=== PATIENT | female | born 1990 | race American Indian/Alaskan Native ===

== ENCOUNTER 2018-03-13 06:55 | Emergency (ER) | payer SELFPAY ==
[2018-03-13] MEDS ORDERED: Alum Hydrox/Mag Hydrox/Simeth 15 ML, Lidocaine 2% 15 ML PO ONE ×2 (07:24)
--- NOTE | 2018-03-13 07:29 | EDM.PDOC ---
ED HPI GENERAL MEDICAL PROBLEM - General Chief Complaint: General Stated Complaint: STOMACH PAIN Time Seen by Provider: 03/13/18 07:15 Source of Information: Reports: Patient, EMS History Limitations: Reports: No Limitations - History of Present Illness INITIAL COMMENTS - FREE TEXT/NARRATIVE: 27-year-old female who admits to recent heroin use, last used 2 days ago, has epigastric and chest discomfort for the last 12 hours. It's intermittent lasting a few minutes to 10-20 minutes, crampy in nature, and seems to originate in the upper abdomen and into the chest. While having the pain it hurts to take a breath. In route she was given 2 nitroglycerin, the second one "might have helped". EKG was unremarkable. She has not had this type of symptom before, no fevers or chills, she had one emesis this morning. No urinary symptoms. No diarrhea. Onset: Unknown/Unsure Duration: Hour(s): (12) Location: Reports: Chest, Abdomen Severity: Moderate Associated Symptoms: Reports: Chest Pain, Nausea/Vomiting. 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: Psychiatric History: Reports: Addiction - Past Surgical History GI Surgical History: Reports: Appendectomy Female Surgical History: Reports: Section Social & Family History - Tobacco Use Smoking Status *Q: Current Some Day Smoker Years of Tobacco use: 15 Packs/Tins Daily: 0.5 Used Tobacco, but Quit: No Second Hand Smoke Exposure: No - Caffeine Use Caffeine Use: Reports: Coffee, Soda, Tea - Alcohol Use Days Per Week of Alcohol Use: 0 - Recreational Drug Use Recreational Drug Use: Yes Drug Use in Last 12 Months: Yes Recreational Drug Type: Reports: Heroin Recreational Drug Use Frequency: Rarely Recreational Drug Last Use: heroin ED ROS GENERAL - Review of Systems Review Of Systems: See Below Constitutional: Reports: Malaise. Denies: Fever, Chills HEENT: Reports: No Symptoms Respiratory: Reports: Pleuritic Chest Pain. Denies: Shortness of Breath Cardiovascular: Reports: Chest Pain GI/Abdominal: Reports: Abdominal Pain, Nausea, Vomiting. Denies: Constipation, Diarrhea, Hematemesis : Reports: No Symptoms Skin: Reports: No Symptoms Neurological: Denies: Headache ED EXAM, GENERAL - Physical Exam Exam: See Below Exam Limited By: No Limitations General Appearance: Alert, Mild Distress (When I first arrived in the room she was comfortable but pain redeveloped causing her to be in mild distress, apparent discomfort) Eye Exam: Bilateral Eye: Other (No jaundice to the sclera) Neck: Normal Inspection Respiratory/Chest: No Respiratory Distress, Lungs Clear Cardiovascular: Regular Rate, Rhythm. No: Extra Beats GI/Abdominal: Soft, Tender (Reacts with tenderness with mild guarding to palpation across the upper abdomen, especially the epigastric area and right upper quadrant) Course - Vital Signs Last Recorded V/S: Last Vital Signs Temp 96.3 F 03/13/18 07:17 Pulse 67 03/13/18 08:32 Resp 13 03/13/18 07:17 BP 102/63 03/13/18 08:32 Pulse Ox 99 03/13/18 07:17 - Orders/Labs/Meds Labs: Laboratory Tests 03/13/18 03/13/18 Range/Units 07:33 07:33 WBC 10.5 (4.5-11.0) K/uL RBC 4.80 (3.30-5.50) M/uL Hgb 13.0 (12.0-15.0) g/dL Hct 39.2 (36.0-48.0) % MCV 82 (80-98) fL MCH 27 (27-31) pg MCHC 33 (32-36) % Plt Count 232 (150-400) K/uL Neut % (Auto) 78 H (36-66) % Lymph % (Auto) 16 L (24-44) % Mccreary % (Auto) 5 (2-6) % Eos % (Auto) 1 L (2-4) % Baso % (Auto) 0 (0-1) % Sodium 144 (140-148) mmol/L Potassium 3.2 L (3.6-5.2) mmol/L Chloride 106 (100-108) mmol/L Carbon Dioxide 27 (21-32) mmol/L Anion Gap 14.2 H (5.0-14.0) mmol/L BUN 10 (7-18) mg/dL Creatinine 0.7 (0.6-1.0) mg/dL Est Cr Clr Drug Dosing 123.93 mL/min Estimated GFR (MDRD) > 60 (>60) Glucose 112 H (74-106) mg/dL Calcium 8.2 L (8.5-10.1) mg/dL Total Bilirubin 0.7 (0.2-1.0) mg/dL AST 107 H (15-37) U/L ALT 61 (12-78) U/L Alkaline Phosphatase 94 (46-116) U/L Total Protein 7.0 (6.4-8.2) g/dL Albumin 3.5 (3.4-5.0) g/dL Globulin 3.5 (2.3-3.5) g/dL Albumin/Globulin Ratio 1.0 L (1.2-2.2) Amylase 37 (25-115) U/L Lipase 142 (73-393) U/L Meds: Medications Discontinued Medications Generic Name Dose Route Start Last Admin Trade Name Freq PRN Reason Stop Dose Admin Al Hydroxide/Mg Hydroxide 15 0 ml 03/13/18 07:24 03/13/18 07:39 ml/ Lidocaine HCl 15 ml PO 03/13/18 07:25 30 ml ONETIME ONE Administration Pantoprazole Sodium 40 mg 03/13/18 08:13 03/13/18 08:23 Protonix Iv IVPUSH 03/13/18 08:14 40 mg ONETIME ONE Administration - Re-Assessments/Exams Free Text/Narrative Re-Assessment/Exam: 03/13/18 07:31 GI cocktail was given, and a CBC, CMP, amylase and lipase were obtained. 03/13/18 08:09 Shortly after the GI cocktail her symptoms were completely resolved. She slept fairly soundly for the next hour without any recurrence of symptoms. CBC returned normal, white count and hemoglobin were both normal. Amylase and lipase were normal. She did have a moderate elevation of AST, the rest of her liver enzymes were normal. Patient was given a prescription for omeprazole to take 20 mg daily for the next 2 weeks, and told to recheck in 2-3 days if symptoms are recurring especially with fever or increased pain. She was given 40 mg of IV Protonix prior to discharge. Departure - Departure Time of Disposition: 09:07 Disposition: Home, Self-Care 01 Condition: Good Clinical Impression: Abdominal pain Qualifiers: Abdominal location: epigastric Qualified Code(s): R10.13 - Epigastric pain - Discharge Information Instructions: Abdominal Pain, Adult, [id number] Referrals: PCP,None [Primary Care Provider] - Forms: ED Department Discharge Care Plan Goals: Take just liquids for the next 6-10 hours and increase diet as tolerated avoiding stronger or spicy foods for the next 1-2 days. A bland diet may be helpful. Take omeprazole every day 20 minutes before your first meal for at least 2 weeks. Avoid alcohol. Return anytime if worsening such as fever or increased pain, or consider rechecking with your regular doctor in 7-10 days if not improving satisfactorily.
[2018-03-13] MEDS ORDERED: Pantoprazole 40 MG Vial IVPUSH ONE (08:13)
== END 2018-03-13 09:35 | disposition home or self-care (01) ==
LOC: JP.ED 06:55
DX: R10.13 Epigastric pain (principal); R07.89 Other chest pain; F17.210 Nicotine dependence, cigarettes, uncomplicated; Z88.6 Allergy status to analgesic agent; Z88.8 Allergy status to other drugs, medicaments and biological substances
CPT/HCPCS: 36415; 80053; 82150; 83690; 85025; 96374; 99284; A9270; C9113; 99283